=== PATIENT | female | born 1995 | race African-American/Black ===

== ENCOUNTER 2024-04-15 01:56 | Inpatient (IN) | payer OTHER ==
[2024-04-15] VITALS (70 sets, daily range): BP systolic 90–150; BP diastolic 44–93; PULSE 75–120; TEMP 97.4–98.5
[~2024-04-15] VITALS: Wt 74.5 kg
--- NOTE | 2024-04-15 02:15 | NUR ---
G1L0. 39.1. Wheeled to LDR 5 with spouse. Clean gown on. EFM and TOCO explained and applied. Pt states she thinks her water broke at 0145. clear fluid noted. Pt denies contractions or vaginal bleeding at this time. Reports good movement. Plan of care explained. 0225: Amniotrace +, clear fluid noted. SVE completed . 0235: at nurses station and reviews pt's records and FHR strip. See physican notification. Admit orders received. Pt updated on plan of care. Denies questions at this time. 0315: IV started and labs obtained via IV site. LR bolus infusing without difficulty. 0330: Pt reports starting to feel cramping with contraction.
[2024-04-15] MEDS ORDERED: PRENATAL MVI PO (02:31)
[2024-04-15] MEDS ORDERED: LR 1,000 ML IV SCH (03:00)
[2024-04-15] MEDS ORDERED: LR & Oxytocin 500 ML IV SCH ×2 (03:00)
[2024-04-15 05:29] LABS: BASO % 0.2 % (0.0-2.0); EOS # 0.2 K/mm3 (0.0-0.7); EOS % 2.2 % (0.0-4.0); GRAN # 5.5 K/mm3 (1.4-6.5); GRAN % 63.2 % (42.2-75.2); HEMOGLOBIN 11.6 g/dl (12.5-16.0); LYMPH # 1.9 K/mm3 (1.2-3.4); LYMPH % 22.1 % (20.0-51.0); MEAN CELL VOLUME 84 fl (80.0-100.0); MEAN CORPUSCULAR HEMOGLOBIN 28 pg (27-31); MEAN CORPUSCULAR HGB CONC 34 g/dl (33.0-37.0); MEAN PLATELET VOLUME 8.9 fl (7.4-10.4); MONO % 11.3 % (1.7-9.3); PLATELET COUNT 326 K/mm3 (130-400); RED BLOOD COUNT 4.09 M/mm3 (4.10-5.30); REDCELL DISTRIBUTION WIDTH-CV 13.4 % (11.5-14.5)
[2024-04-15 05:41] LABS: HEMATOCRIT 34.5 % (37.0-47.0)
[2024-04-15 05:51] LABS: BILIRUBIN,TOTAL 0.2 mg/dL (0.2-1.2); CALCIUM 9.2 mg/dL (8.4-10.2); CREATININE, serum 0.6 mg/dL (0.57-1.11); POTASSIUM 3.6 mEq/L (3.5-4.5); TOTAL PROTEIN 6.7 g/dl (6.2-8.1)
[2024-04-15] MEDS ORDERED: Naloxone 0.4 MG/ML VIAL IV PRN (06:15)
[2024-04-15] MEDS ORDERED: ePHEDrine 50 MG/10 ML VIAL IV PRN (06:15)
[2024-04-15] MEDS ORDERED: diphenhydrAMINE 25 MG CAP PO PRN (06:15)
[2024-04-15] MEDS ORDERED: diphenhydrAMINE 50 MG/ML 1 ML VIAL IV PRN (06:15)
[2024-04-15] MEDS ORDERED: Ondansetron 4 MG/2 ML VIAL IV PRN (06:15)
--- NOTE | 2024-04-15 12:00 | NUR ---
DIFFICULTY TRACING CONTRACTIONS D/T MATERNAL MOVEMENT WITH EACH CONTRACTION.
--- NOTE | 2024-04-15 13:45 | NUR ---
DIFFICULTY TRACING CONTRACTIONS D/T MATERNAL MOVEMENTS.
--- NOTE | 2024-04-15 14:00 | NUR ---
THIS RN AT BEDSIDE ATTEMPTING TO READJUST THE TOCO MULTIPLE TIMES, REQUEST MOHSEN TO BEDSIDE FOR ASSISTANCE. DIFFICULTY TRACING CONTRACTIONS D/T MATERNAL MOVEMENTS.
--- NOTE | 2024-04-15 15:21 | NUR ---
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 NO OTHER CONCERNS AT THIS TIME.
[2024-04-15] MEDS ORDERED: ROPivacaine PF 0.2% 200 ML IV ONE (15:26)
--- NOTE | 2024-04-15 16:55 | NUR ---
AT RN STATION AND REQUESTS PIT TO GO UP, THIS RN ASKED IF HE WAS OK WITH HEART TONES D/T RECURRENT LATES, STATES THEY ARE EARLY DECELS. THIS RN INCREASES PIT PER 'S REQUEST TO 12.
--- NOTE | 2024-04-15 18:00 | NUR ---
1720: THIS RN BOLUS 500ML 1748: TURNED PIT DOWN BY 1/2. 1758: TO RN STATION FROM ANOTHER DELIVERY. NOTIFIED HIM THAT THIS RN BOLUS'D AND REDUCED PITOCIN BY 1/2 TO 6MU ASKS IF THE PATIENT ALSO HAS O2 ON. THIS RN REPLIED, NO. 1800: THIS RN PLACED 10LMP O2 ON PATIENT PER 'S REQUEST.
--- NOTE | 2024-04-15 18:10 | NUR ---
AT BEDSIDE WITH JOSSIE PRYOR AND . BEDSIDE REPORT GIVEN. SVE /-1 TO 0 STATION. PT REMAINS ON O2. REPORT GIVEN TO JOSSIE PRYOR. TRANSFER OF CARE AT THIS TIME.
--- NOTE | 2024-04-15 18:27 | NUR ---
Allowed to remove O2 per simple face mask at this time, as noted heart tones have fully recovered, no longer seeing late decelerations, moderate variability and accels present. This explained to patient and spouse. monitor strip explained to patient and spouse, and things we are looking for. Verbalize understanding.
[2024-04-15] MEDS ORDERED: Penicillin G Potassium 5,000,000 UNITS in NS 100 ML IV ONE (18:45)
--- NOTE | 2024-04-15 19:00 | NUR ---
Note BP not working on monitor. Switched to DYNAMAP for vitals.
--- NOTE | 2024-04-15 19:02 | NUR ---
Repositioned to corry.
--- NOTE | 2024-04-15 19:30 | NUR ---
Repositioned right lateral following repeat SVE.
--- NOTE | 2024-04-15 19:38 | NUR ---
Repositioned left lateral.
--- NOTE | 2024-04-15 19:44 | NUR ---
Pit turned off @ this time.
--- NOTE | 2024-04-15 19:50 | NUR ---
Repositioned to bess's with legs frogged out.
--- NOTE | 2024-04-15 20:03 | NUR ---
Repositioned to knees and elbows.
--- NOTE | 2024-04-15 20:23 | NUR ---
Repositioned left lateral.
--- NOTE | 2024-04-15 20:25 | NUR ---
Repositioned high hoffmann
--- NOTE | 2024-04-15 20:48 | NUR ---
Pit restarted @ 2mU/min, after noting moderate variability, early decels only, and accels present.
[2024-04-15] MEDS ORDERED: Penicillin G Potassium 2,500,000 UNITS in NS 100 ML IV SCH (22:38)
--- NOTE | 2024-04-15 23:00 | NUR ---
in-house, reviews monitor strip.
[2024-04-16] VITALS (17 sets, daily range): BP systolic 80–139; BP diastolic 59–80; PULSE 92–120; TEMP 98–99
--- NOTE | 2024-04-16 00:15 | NUR ---
Note early decels, variable decels, and late decels.
--- NOTE | 2024-04-16 00:30 | NUR ---
Note intermittent early, late, and variable decels.
--- NOTE | 2024-04-16 00:50 | NUR ---
First push attempt with instruction. Note patient spouse and a friend remain in room for delivery/patient support.
--- NOTE | 2024-04-16 01:15 | NUR ---
and Marcy Weller, RN, nursery nurse present for delivery.
--- NOTE | 2024-04-16 01:29 | NUR ---
0126: After just over 30 minutes of expulsive pushing efforts, spontaneous vaginal delivery of viable female by at this time. Note nuchal x1, reduced prior to delivery of shoulders by . Note shoulders delivered rapidly after head, within the same minute. 0129: Spontaneous vaginal delivery of placenta by . Pit bolus begun immediately following @ 333mU/min. then repairs 2nd degree perineal laceration with 2-[address]-1. Fundus firm, lochia WNL. QBL: 157mL.
--- NOTE | 2024-04-16 01:35 | NUR ---
Red richar catheter used by to empty patient bladder. Estimated 50 mL urine return.
--- NOTE | 2024-04-16 01:49 | NUR ---
Epidural pump off @ this time.
[2024-04-16] MEDS ORDERED: Magnes Hydrox (MOM) 80 MG/ML 30 ML CUP PO PRN (02:00)
[2024-04-16] MEDS ORDERED: Loratadine 10 MG TAB PO PRN (02:00)
[2024-04-16] MEDS ORDERED: oxyCODONE 5 MG TAB PO PRN (02:15)
[2024-04-16] MEDS ORDERED: Mag/Al Hydrox/Simeth Susp 30 ML CUP PO PRN (02:15)
[2024-04-16] MEDS ORDERED: Measles/Mumps/Rubella Virus Vaccine Live w Diluent 0.5 ML VIAL SQ SCH (02:15)
[2024-04-16] MEDS ORDERED: Phenylephrine/Mineral Oil/Petrolatum 57 GM TUBE RC PRN (02:15)
[2024-04-16] MEDS ORDERED: Naloxone 0.4 MG/ML VIAL IV PRN (02:15)
[2024-04-16] MEDS ORDERED: Witch Hazel 50% Pads Bulk TUB TP PRN (02:15)
[2024-04-16] MEDS ORDERED: Ibuprofen 800 MG TAB PO SCH (03:00)
[2024-04-16] MEDS ORDERED: Acetaminophen 500 MG TAB PO SCH (03:00)
--- NOTE | 2024-04-16 03:40 | NUR ---
Assisted up to BR for first time post delivery using [employer]. Patient able to stand without assist. Denies any lightheadedness, dizziness, nausea. Able to spontaneously void without difficulty. Soledad care provided. Mesh underwear, soledad pad, ice pack applied. Clean gown provided. Transferred to room 208 per [employer].
[2024-04-16] MEDS ORDERED: Acetaminophen 500 MG TAB PO PRN (04:00)
[2024-04-16] MEDS ORDERED: Sennosides/Docusate 8.6-50 MG TAB PO SCH (08:00)
[2024-04-16] MEDS ORDERED: MOTRIN 800800 MG/TAB PO (19:16)
[2024-04-16 20:31] LABS: HEMOGLOBIN 11.5 g/dl (12.5-16.0); MEAN CELL VOLUME 83 fl (80.0-100.0); MEAN CORPUSCULAR HEMOGLOBIN 28 pg (27-31); MEAN CORPUSCULAR HGB CONC 34 g/dl (33.0-37.0); MEAN PLATELET VOLUME 8.6 fl (7.4-10.4); PLATELET COUNT 299 K/mm3 (130-400); RED BLOOD COUNT 4.07 M/mm3 (4.10-5.30); REDCELL DISTRIBUTION WIDTH-CV 13.5 % (11.5-14.5)
[2024-04-16 20:35] LABS: HEMATOCRIT 33.9 % (37.0-47.0)
[2024-04-16] MEDS ORDERED: traZODone 50 MG TAB PO PRN (21:00)
[2024-04-17 07:45] VITALS: BP 118/68; PULSE 85; TEMP 98.3
--- NOTE | 2024-04-17 14:45 | NUR ---
DISCHARGE TEACHING COMPLETED. EDUCATED ON FOLLOW UP APPOINTMENT AND PRESCRIPTION. QUESTIONS INVITED AND ANSWERED.
== END 2024-04-17 15:41 | disposition home or self-care (01) | DRG 560 ==
LOC: LDRO 01:56 → LDR 02:59 → OB 04-16 03:50
PROVIDERS: Student in an Organized Health Care Education/Training Program; ADMIT Obstetrics & Gynecology
PROC: 10E0XZZ Delivery of Products of Conception, External Approach (ICD-10-PCS; principal; 2024-04-16)
PROC: 0KQM0ZZ Repair Perineum Muscle, Open Approach (ICD-10-PCS; 2024-04-16)
PROC: 3E033VJ Introduction of Other Hormone into Peripheral Vein, Percutaneous Approach (ICD-10-PCS; 2024-04-16)
DX: O36.5930 Maternal care for other known or suspected poor fetal growth, third trimester, not applicable or unspecified (principal); Z37.0 Single live birth; O35.BXX0 Maternal care for other (suspected) fetal abnormality and damage, fetal cardiac anomalies, not applicable or unspecified; O70.1 Second degree perineal laceration during delivery; O69.81X0 Labor and delivery complicated by cord around neck, without compression, not applicable or unspecified; Z3A.39 39 weeks gestation of pregnancy
CPT/HCPCS: J2540; J2590; J2795; J7120